=== PATIENT | male | born 1985 | race Caucasian/White ===

== ENCOUNTER 2021-05-07 14:51 | Inpatient (IN) | payer OTHER ==
[~2021-05-07] VITALS: Ht 172.7 cm; Wt 109.3 kg
[2021-05-07 16:00] VITALS: BP 115/73
[2021-05-07 16:34] LABS: HEMATOCRIT 35.3 % (42.0-52.0); HEMOGLOBIN 11.5 gm/dL (14.0-18.0); MCH 27.8 pg (26.0-34.0); MCHC 32.6 g/dL (28.0-37.0); MCV 85.3 fL (80.0-100.0); RBC 4.13 mil/uL (4.50-6.00); RDW-CV 15.2 % (10.5-14.5); WBC 16.5 thou/uL (4.0-11.0)
[2021-05-07 16:51] LABS: ALBUMIN 2.6 g/dL (3.4-5.0); CALCIUM 9.1 mg/dL (8.5-10.1); CREATININE 1.3 mg/dL (0.6-1.3); POTASSIUM 3.6 mmol/L (3.5-5.1); TOTAL BILIRUBIN 0.2 mg/dL (<0.1-1.0); TOTAL PROTEIN 7.5 g/dL (6.4-8.2)
--- NOTE | 2021-05-07 17:42 | H ---
[place] [address] HISTORY AND PHYSICAL Name: BARBARA QURESHI Room: [address] M.R.#: [id number] Admission: 05/07/21 Attend Phys: Caesar Garcia DO Discharge: Date of : 81 Report #: [id number] THIS REPORT FOR: cc: Paco Alexander,Caesar Echeverria DO ~ cc: Paco Alexander DO ADMIT DATE: 05/07/2021 REFERRING PHYSICIAN: Paco Alexander DO REASON FOR ADMISSION: Ulcerative colitis flare. HISTORY OF PRESENT ILLNESS: The patient is a very pleasant 35-year-old white male with chronic ulcerative colitis, specifically pancolitis, who was seen in the office 3 days ago for followup of his ulcerative colitis. He was currently receiving Apriso 750 mg 3 capsules 3 times daily, but was having persistent lower abdominal cramping, diarrhea and fatigue. He is also having problems with low-grade fevers, nausea and vomiting with inability to eat much of anything without having cramping or diarrhea. He also had issues with near incontinence. He is also having to strain when he went to the bathroom. He underwent a full colonoscopy on 02/27 at [facility] to evaluate his complaints and his colonoscopy revealed pancolitis, most compatible with ulcerative colitis. Biopsies taken from throughout the colon were compatible with the same. I initially was going to place him on Lialda or mesalamine 1.2 grams 4 capsules once daily, but because it was unaffordable, he was switched over to balsalazide and while he has been compliant with the balsalazide, he has been still fairly miserable. He was originally diagnosed with some form of inflammatory bowel disease, thought to be in 2015 with possible Crohn's disease by Dr. Dhruv Wilson, his primary care provider and was placed on sulfasalazine for a short period of time, but developed a rash while taking it. We still do not have those records regarding his colonoscopy. He did well for quite a few years until December or January of this year when he started having problems with increasing abdominal pain, cramping and diarrhea. He had COVID earlier this year and there was some question as to whether or not this may have triggered his flare. He went to [facility] on the first part of January and underwent a CT scan of the abdomen and pelvis which revealed inflammation of the left colon and rectum for which he was placed on Cipro and Flagyl with incomplete relief. He was then placed on steroids in the form of prednisone and as he was feeling well on the steroids, he eventually tapered off of them and started feeling worse again. He has not gone back to normal since having been off the steroids. While he is keeping up on fluids, he has not been able to keep much of anything down. He was taking some oral protein supplements to help with [place] [address] HISTORY AND PHYSICAL Name: BARBARA QURESHI Room: [address] [place]#: [id number] Admission: 05/07/21 Attend Phys: Caesar Garcia DO Discharge: Date of : 81 Report #: [id number] accompanied by his on 05/04 for this office visit. At that time, his physical examination revealed his vital signs to be stable, but he was tachycardic and appeared to be ill appearing in terms of overall status. He did not feel well. It was at that time that I recommended that we place him on budesonide 3 capsules, 3 tablets daily, some Zofran 4 mg p.o. q. 4-6 hours and if he was not better within 24-48 hours, I would recommend that he be admitted to the hospital. In addition, I began him on some Canasa suppositories 1 gram per rectum at bedtime to help with his rectal issues. He contacted me earlier today and states he is still doing poorly at home and for this reason, I got him directly admitted to the hospital for further evaluation and treatment. ALLERGIES: SULFA. MEDICATIONS: At home include balsalazide 750 mg 3 capsules 3 times daily, dicyclomine 1-2 capsules q. 4-6 hours as needed for abdominal pain. PAST MEDICAL HISTORY: Remarkable for ulcerative colitis, iron deficiency anemia, chronic fatigue, anxiety, and depression. His last colonoscopy was performed in February of this year. SOCIAL HISTORY: The patient is . He does not smoke, occasionally drinks alcohol. He is a teacher. PHYSICAL EXAMINATION: VITAL SIGNS: At time of his office visit revealed his temperature to be 100.8, blood pressure is 145/87, his pulse was 109. His height is 5 feet 8 inches, weight 241 pounds. HEENT: No scleral icterus. Oropharynx is clear. CARDIOPULMONARY: Examination was benign except for diffuse tenderness. ABDOMEN: Soft and diffusely tender. LABORATORY DATA: Performed on 03/10 at [facility] revealed a white count of 9.4, hemoglobin 14.2, platelet count 505,000 with an MCV of 89.9 and RDW 12.6. His sed rate was 38 and C-reactive protein 23.6. His sodium was 140, potassium 4.5, chloride 103, bicarbonate 25, BUN 10, creatinine 1.04. GFR of 90. Total bilirubin 0.3, alkaline phosphatase 104, AST 14, ALT 21, albumin 4.4. Iron saturation was 20% with a ferritin of only 22. Acute hepatitis panel and QuantiFERON TB Gold blood tests were also supposed to be done at the same time, but we still do not have those records. IMPRESSION: [place] [address] HISTORY AND PHYSICAL Name: LEIGHANN QURESHIISATU Nunez Room: [address] IN [facility]#: [id number] Admission: 05/07/21 Attend Phys: Caesar Garcia DO Discharge: Date of : 81 Report #: [id number] 1. Ulcerative colitis, specifically pancolitis, which is still symptomatic despite oral medical regimen. 2. Dehydration and fatigue secondary to ulcerative colitis, specifically pancolitis, which is still symptomatic despite oral medical regimen. 3. Iron deficiency anemia secondary to ulcerative colitis, specifically pancolitis, which is still symptomatic despite oral medical regimen. 4. Anxiety and depression. RECOMMENDATIONS: 1. At the present time, the patient still continues to be very symptomatic from his ulcerative colitis and had been recommended to be admitted to the hospital for IV fluids and IV steroids. We will begin him on IV Solu-Medrol 40 mg IV q. 8 hours as well as IV fluids with warm normal saline 250 mL per hour for 2 liters and 125 mL thereafter. We will also begin him on Asacol or mesalamine on equivalent doses as well as Bentyl as needed and Anusol suppositories since Canasa suppositories are not available. We will check labs upon admission to include a CBC, CMP, sed rate, CRP, acute hepatitis panel and QuantiFERON TB Gold blood test. I will have tramadol and Benadryl available as well as Tylenol available for p.r.n. use. Zofran will also be able to be used as needed. 2. Once we have the results back from his QuantiFERON TB Gold blood test and acute hepatitis panel, we would then begin benefit investigation for Remicade infusions to begin in a very short period of time. We will begin him on 5 mg/kg IV piggyback at 2 and 6 weeks followed by every 8 weeks thereafter. I have discussed all these plans with the patient as well as his at the time of his office visit and they were agreeable to these plans. <ELECTRONICALLY SIGNED> By: Caesar Garcia DO 05/07/21 [id number] Garcia DO /nt
--- NOTE | 2021-05-07 18:43 | NUR ---
PT ARRIVED TO [facility] WITH STEADY GAIT. PT WAS ORIENTED TO ROOM AND STAFF. 20 GUAGE SALINE LOCK PLACED IN LEFT FOREARM WITH NORMAL SALINE INFUSING WITH OUT DIFFICULTY. PT STATED HE DOES NOT HAVE PAIN UNLESS IT IS RIGHT BEFORE HE HAS TO HAVE A BM THEN THE CRAMPING IS BAD BUT GOES AWAY AFTER BM IS COMPLETED. PT IS TOLERATE PO FOOD AND FLUIDS AT SUPPER. PT HAS A STEADY GAIT AND IS UP AD VICKI IN HIS ROOM. WILL CONBTINUE TO MONITOR PLAN OF CARE. VSS AFEBRILE.
[2021-05-07 21:04] VITALS: BP 105/75
[2021-05-07 23:48] VITALS: BP 123/77
[2021-05-08 03:45] LABS: HEMATOCRIT 31.4 % (42.0-52.0); HEMOGLOBIN 9.9 gm/dL (14.0-18.0); MCH 27.3 pg (26.0-34.0); MCHC 31.6 g/dL (28.0-37.0); MCV 86.2 fL (80.0-100.0); MPV 6.7 fl. (7.2-11.1); RBC 3.64 mil/uL (4.50-6.00); WBC 12.6 thou/uL (4.0-11.0)
[2021-05-08 04:03] LABS: CALCIUM 8.3 mg/dL (8.5-10.1); CREATININE 1.1 mg/dL (0.6-1.3)
[2021-05-08] MEDS ORDERED: BALSALAZIDE DI750 M1 PO (04:22)
[2021-05-08] MEDS ORDERED: PREDNISONE 10 M10 MG PO (04:24)
[2021-05-08] MEDS ORDERED: BENTYL 10 MG CA10 M1 PO (04:24)
[2021-05-08] MEDS ORDERED: ONDANSETRON HCL4 M2 PO (04:25)
[2021-05-08] MEDS ORDERED: VENLAFAXINE H37.5 M2 PO (04:26)
[2021-05-08 04:37] LABS: % SATURATION 14 % (20-39); IRON 26 ug/dL (50-175)
--- NOTE | 2021-05-08 07:20 | NUR ---
CHANGE OF SHIFT BEDSIDE REPORT GIVEN PATIENT SEEN AT BEDSIDE, IN BED WATCHING TV ASSUMED PATIENT CARE
[2021-05-08 08:00] VITALS: BP 130/76
--- NOTE | 2021-05-08 08:49 | NUR ---
PT IS ABLE TO COMMUNICATE HIS NEEDS TO STAFF EFFECTIVELY. HE HAS DENIED THE NEED FOR PAIN MEDICATION UP TO 0700 TODAY. HE HAS STATED THAT HE HAS FREQUENT BMs AND HE HAS RELIEF FORM PAIN POST BM; MD IS AWARE HE IS A DIRECT GI ADMIT.
--- NOTE | 2021-05-08 12:54 | NUR ---
Pt is A&O. Direct admit from Dr Santos's office. Resides at home. Independent. No DME. No hx of HH or SNF. GI following. Await labs. Continue IV fluids and steroids.
[2021-05-08 16:00] VITALS: BP 118/66
[2021-05-08 17:06] LABS: HEPATITIS B SURFACE AG Negative (Negative)
[2021-05-08 20:04] VITALS: BP 130/84
--- NOTE | 2021-05-09 07:43 | NUR ---
PT IS ABLE TO COMMUNICATE HIS NEEDS TO STAFF EFFECTIVELY, CURRENT PAIN MEDICATION REGIMEN HAS BEEN ADEQUATE FOR CONTROLLING HIS PAIN UP TO 0700 THIS MORNING. NOTED SOME INCREASE IN ABD PAIN THIS MORNING; MEDS GIVEN; TOLERATED WELL.
[2021-05-09 08:22] VITALS: BP 125/86
--- NOTE | 2021-05-09 14:52 | NUR ---
GI following, stools trending down. AM labs
[2021-05-09 16:00] VITALS: BP 139/84
--- NOTE | 2021-05-09 17:34 | NUR ---
PATIENT HAS REMAINED A&OX4, PLEASANT AND COOPERATIVE WITH CARES THIS SHIFT. MEDICATIONS ADMINISTERED ORDERED. PATIENT UP AD VICKI IN ROOM. CALL LIGHT AND FREQUENTLY USED ITEMS WITHIN REACH.
[2021-05-09 20:15] VITALS: BP 132/84
[2021-05-10 05:34] LABS: HEMATOCRIT 30.3 % (42.0-52.0); HEMOGLOBIN 9.9 gm/dL (14.0-18.0); MCH 28.2 pg (26.0-34.0); MCHC 32.8 g/dL (28.0-37.0); MCV 85.9 fL (80.0-100.0); MPV 6.5 fl. (7.2-11.1); NUCLEATED RBCS 0 /100WBC; PLATELET COUNT* 882 thou/uL (150-400); RBC 3.52 mil/uL (4.50-6.00); WBC 13.2 thou/uL (4.0-11.0)
[2021-05-10 06:11] LABS: ALBUMIN 2.2 g/dL (3.4-5.0); CALCIUM 8.3 mg/dL (8.5-10.1); CREATININE 1.1 mg/dL (0.6-1.3); POTASSIUM 4.3 mmol/L (3.5-5.1); TOTAL BILIRUBIN 0.2 mg/dL (<0.1-1.0); TOTAL PROTEIN 6.1 g/dL (6.4-8.2)
--- NOTE | 2021-05-10 06:14 | NUR ---
PT STATES HE SLEPT WELL WITHOUT DIFFICULTY. LFA SL IV. UP AD VICKI IN ROOM. ABLE TO USE CALL LITE AND MAKE NEEDS KNOWN. MED SURG STATUS. AM LABS. RECEIVING TRAMADOL FOR ABD PAIN TWICE THIS SHIFT. HOPEFUL FOR DISCHARGE HOME TODAY.
[2021-05-10 06:15] LABS: ABSOLUTE LYMPHOCYTES 0.9 thou/uL (0.8-5.3); ABSOLUTE MONOCYTES 0.4 thou/uL (0.0-1.2); ABSOLUTE NEUTROPHILS 11.9 thou/uL (1.6-8.1); METAMYELOCYTES 6 %
[2021-05-10 06:16] LABS: PLATELET ESTIMATE INCREASED
[2021-05-10 08:00] VITALS: BP 122/72
[2021-05-10 11:21] VITALS: BP 128/77
[2021-05-10] MEDS ORDERED: TRAMADOL 50 MG50 MG PO (11:26)
[2021-05-10 13:20] VITALS: BP 128/77
[2021-05-10 13:55] VITALS: BP 128/77
--- NOTE | 2021-05-10 13:55 | NUR ---
PATIENT GIVEN DISCHARGE INSTRUCTIONS WELL 4 PRESCRIPTIONS AND INFORMATION SHEETS FOR EACH. IV REMOVED. PATIENT DENIED PAIN/QUESTIONS/CONCERNS PRIOR TO D/C. PATIENT LEFT UNIT WITH PERSONAL BELONGINGS VIA W/C, ACCOMPANIED BY NURSING STAFF AT APPROX. 1355 TO MEET FRIEND AT MAIN ENTRANCE FOR RIDE HOME.
== END 2021-05-10 13:55 | disposition home or self-care (01) | DRG 386 ==
LOC: M.2W 14:51
PROVIDERS: Nurse Practitioner Adult Health; ADMIT Internal Medicine Gastroenterology; ATTEND Internal Medicine Gastroenterology
DX: K51.00 Ulcerative (chronic) pancolitis without complications (principal); R65.10 Systemic inflammatory response syndrome (SIRS) of non-infectious origin without acute organ dysfunction; E44.1 Mild protein-calorie malnutrition; F41.9 Anxiety disorder, unspecified; F32.9 Major depressive disorder, single episode, unspecified; E86.0 Dehydration; D50.9 Iron deficiency anemia, unspecified; D47.3 Essential (hemorrhagic) thrombocythemia; Z20.822 Contact with and (suspected) exposure to COVID-19; Z72.89 Other problems related to lifestyle